=== PATIENT | male | born 1960 | race Caucasian/White ===

== ENCOUNTER 2018-04-16 20:30 | Outpatient (CLI) | payer BC | END 2018-04-16 20:31 | disposition home or self-care (01) | LOC: SLEEPLAB 20:30 | PROVIDERS: ATTEND Family Medicine | DX: G47.33 Obstructive sleep apnea (adult) (pediatric) (principal); R53.83 Other fatigue; R51 Headache; E66.9 Obesity, unspecified; R06.83 Snoring; I10 Essential (primary) hypertension; Z68.43 Body mass index [BMI] 50.0-59.9, adult | CPT/HCPCS: 95811 ==

== ENCOUNTER 2019-09-05 11:17 | Outpatient (CLI) | payer BC ==
--- NOTE | 2019-09-05 11:33 | RAD ---
RIGHT WRIST 3 VIEWS: Date: 09/05/2019 HISTORY: Right wrist pain for 3 days without known injury. FINDINGS: Minimal osteoarthrosis and degenerative change of the wrist joint, including the trapezium and first metacarpal joint. No evidence for acute fracture or dislocation. IMPRESSION: Mild osteoarthrosis change without acute fracture or dislocation. POS: [facility]
== END 2019-09-05 11:18 | disposition home or self-care (01) ==
LOC: BICRAD 11:17
PROVIDERS: ATTEND Family Medicine
DX: M25.531 Pain in right wrist (principal); M19.031 Primary osteoarthritis, right wrist

== ENCOUNTER 2020-01-10 08:41 | Outpatient (CLI) | payer BC ==
--- NOTE | 2020-01-10 08:58 | RAD ---
RADIOGRAPH LUMBAR SPINE 2 VIEWS: DATE: 01/10/2020 HISTORY: Lumbar spine trauma. 59-year-old male with acute low back pain after fall M 54.5 FINDINGS: Low image resolution due to body habitus. Poor visualization of fine bony detail. 5 lumbar-type verte brae. No gross vertebral body collapse. There is no gross evidence of fracture.. No spondylolisthesis. Small-moderate endplate marginal osteophytes and mild disc space narrowing, at L1- 2 and L2-3. The rest of the disc spaces are maintained. No scoliosis. IMPRESSION: 1) no evidence of gross compression fracture. 2) mild lumbar spondylosis.
== END 2020-01-10 08:42 | disposition home or self-care (01) ==
LOC: TBSIIMAG 08:41
PROVIDERS: ATTEND Neurological Surgery
DX: M54.5 Low back pain (principal); M47.816 Spondylosis without myelopathy or radiculopathy, lumbar region
CPT/HCPCS: 72100

== ENCOUNTER 2020-04-09 07:49 | Outpatient (CLI) | payer BC ==
--- NOTE | 2020-04-09 10:57 | MRI ---
MRI LUMBAR SPINE NONCONTRAST: DATE: 04/09/2020 HISTORY: 60-year-old male with M51.36 degenerative disc disease, and M54.5 low back pain. COMPARISON: None. FINDINGS: There is poor [id number] ratio of all of the images. At least some of this, and possibly all of i t, is due to body habitus. Five lumbar-type vertebrae. Vertebral body heights are maintained. No spondylolisthesis. Disc desiccation and disc space narrowing that is mild to moderate at L1-2, L2-3, and L5-S1. Normal signal and normal height of discs at T12-L1, L3-4, and L4-5. Spinal canal is diffusely small in caliber at the mid and upper levels on a congenital basis due to d evelopmentally short pedicles. Conus medullaris terminates at approximately L1-2. T12-L1: No high grade central spinal canal stenosis. Bilateral mild to moderate neural foraminal kory nosis mostly due to short pedicles. L1-2: Disc bulge and possible superimposed central and bilateral paracentral shallow disc protrusion with posterior midline annular fissure, indents the ventral surface of thecal sac, minimally exacerb ating the developmentally small caliber spinal canal. Mild to moderate central spinal canal stenosis and mild to moderate bilateral neural foraminal stenosis. L2-3: Small focal lesion that is hypointense on all pulse sequences at midline anterior epidural spa ce slightly superior to the disc level mildly indents the ventral surface of the thecal sac causing m oderate thecal sac stenosis and mild to moderate central spinal canal stenosis. This may be superiorl y migrated small disc fragment or focal calcification of posterior longitudinal ligament. At the disc space level, there is mild to moderate central spinal canal stenosis almost entirely on a developmen estrada basis. Mild to moderate bilateral neural foraminal stenosis mostly on a developmental basis. L3-4: Mild central spinal canal stenosis entirely on a developmental basis. Bilateral moderate neura l foraminal stenosis due to minimal bilateral lateral disc bulge and developmentally short pedicles. L4-5: The spinal canal becomes larger at this level. No central spinal canal stenosis. Mild to moder ate bilateral neural foraminal stenosis. Mild bilateral facet DJD, right greater than left. L5-S1: Prominent diffuse disc bulge. Moderate bilateral neural foraminal stenosis. No high grade fac et DJD. The disc bulge abuts the bilateral S1 nerve roots at the lateral recesses, but there is no si gnificant central spinal canal stenosis. IMPRESSION: 1. Low image resolution due to poor [id number] ratio, at least in part due to body habitus. 2. Moderate bilateral neural foraminal stenosis at L5-S1. 3. Low grade lumbar spondylosis, with mild to moderate degenerative disc disease at L1-2, L2-3, and L5-S1. GABRIEL De Leon POS: [facility]
== END 2020-04-09 07:50 | disposition home or self-care (01) ==
LOC: TBSIIMAG 07:49
PROVIDERS: ATTEND Physician Assistant
DX: M51.36 Other intervertebral disc degeneration, lumbar region (principal); M54.5 Low back pain; M51.37 Other intervertebral disc degeneration, lumbosacral region; M47.816 Spondylosis without myelopathy or radiculopathy, lumbar region; M48.07 Spinal stenosis, lumbosacral region
CPT/HCPCS: 72148

== ENCOUNTER 2023-12-26 19:23 | Emergency (ER) | payer OTHER ==
[~2023-12-26 19:23] MED LIST: Iopamidol-370 76% 500 ML MDV (1 ML CHARGE) ONE
[2023-12-26 20:00] LABS: #Basophils 0.03 10x3/uL (0.0-0.2); %Basophils 0.4 % (0.0-1.0); %Eosinophils 1.7 % (0.0-10.0); %Monocytes 7.7 % (0.0-10.0); Hemoglobin 13.3 g/dL (14.0-18.0); Mean Corpuscular Hemoglobin 29.9 pg (27.0-31.0); Mean Corpuscular Volume 85.4 fL (78.0-98.0); Mean Platelet Volume 10.2 fL (7.4-10.4); Platelet Count 213 10x3/uL (130-400); RBC Distribution Width 13.4 % (11.5-14.5); Red Blood Cell (RBC) Count 4.45 mill/uL (4.70-6.10)
[2023-12-26 20:15] LABS: Magnesium 1.6 mg/dL (1.6-2.6)
[2023-12-26 20:16] LABS: Amphetamine Not Detected (NotDetected); Barbiturates Screen Not Detected (NotDetected); Benzodiazepine Screen Not Detected (NotDetected); Cocaine Metabolite Screen Not Detected (NotDetected); Methadone Not Detected (NotDetected); Methamphetamine Not Detected (NotDetected); Opiate Screen Not Detected (NotDetected); Oxycodone Screen Not Detected (NotDetected); Phencyclidine (PCP) Not Detected (NotDetected); THC/Cannabinoid Screen Not Detected (NotDetected); Tricyclic Screen Not Detected (NotDetected)
[2023-12-26 20:16] LABS: Acetaminophen Less than 10 mcg/mL (10.0-30.0); Alcohol Less than 10.0 mg/dL (Less than 10); INR-International Normal Ratio 1.1; PTT 27.8 sec (22.9-36.1); Prothrombin Time 14.1 sec (12.0-14.7); Salicylate Less than 8.0 mg/dL (15.0-30.0)
[2023-12-26 20:18] LABS: ALT (SGPT) 25 U/L (8-55); AST (SGOT) 19 U/L (5-34); Albumin 3.6 g/dL (3.4-4.8); Alkaline Phosphatase 106 U/L (40-110); Anion Gap 14 mmol/L (10-20); BUN (Urea Nitrogen) 17 mg/dL (8.4-25.7); Bilirubin, Total 0.5 mg/dL (0.2-1.2); Calc. Creatinine Clearance 0 mL/min (70-130); Calcium 9.5 mg/dL (7.8-10.44); Carbon Dioxide 25 mmol/L (23-31); Chloride 106 mmol/L (98-107); Estimated GFR 75; Globulin 3.9 g/dL (2.4-3.5); Glucose 222 mg/dL (80-115); Protein, Total 7.5 g/dL (5.8-8.1); Sodium 141 mmol/L (136-145)
[2023-12-26] MEDS ORDERED: fentaNYL 50 mcg/mL 1 mL Vial ONE (21:00)
[2023-12-26] MEDS ORDERED: Bacitracin 1 PK ONE (22:14)
== END 2023-12-26 22:30 | disposition home or self-care (01) ==
LOC: ERS 19:23
DX: S00.01XA Abrasion of scalp, initial encounter (principal); S60.511A Abrasion of right hand, initial encounter; S80.212A Abrasion, left knee, initial encounter; S80.211A Abrasion, right knee, initial encounter; I10 Essential (primary) hypertension; E11.9 Type 2 diabetes mellitus without complications; E66.9 Obesity, unspecified; V57.0XXA Driver of pick-up truck or van injured in collision with fixed or stationary object in nontraffic accident, initial encounter; Y93.89 Activity, other specified; Y92.410 Unspecified street and highway as the place of occurrence of the external cause; Z55.6 Problems related to health literacy
CPT/HCPCS: 70450; 71045; 71260; 72125; 74177; 80053; 80306; 80307; 83605; 83735; 85025; 85610; 85730; 93005; 96374; G0390; J3010; Q9967